=== PATIENT | female | born 1935 | race Caucasian/White ===

== ENCOUNTER 2019-09-12 18:50 | Emergency (ER) | payer OTHER, MEDICARE ==
[2019-09-12 19:05] VITALS: BP 167/64; PULSE 83; TEMP 98; BMI 23.0
--- NOTE | 2019-09-13 01:51 | PDOC ---
Documentation entered by Tara Lawrence SCRIBE, acting as scribe for Magdalena Calix MD. Magdalena Calix MD: This documentation has been prepared by the Howard tucker Xhesika, SCRIBE, under my direction and personally reviewed by me in its entirety. I confirm that the documentation accurately reflects all work, treatment, procedures, and medical decision making performed by me. History of Present Illness - General Chief Complaint: Injury Stated Complaint: R wrist pain Time Seen by Provider: 09/12/19 19:31 History Source: Patient Exam Limitations: No Limitations - History of Present Illness Initial Comments: 09/12/19 21:01 The patient is a 84y/o F female with a PMH of breast ca whio presents to the ED with R wrist swelling s/p fall this morning. Pt states she tripped on a box next to her garbages and fell on her R wrist. Pt states her pain is worse with movements. Pt denies any other injuries. Pt denies hitting her head or LOC. Allergies: Diclofenac sodium PCP: Dr. Souza Past History - Medical History Allergies/Adverse Reactions: Allergies Allergy/AdvReac Type Severity Reaction Status Date / Time diclofenac sodium Allergy Intermediate Rash Verified 11/06/11 13:02 [From Voltaren] Home Medications: Ambulatory Orders Calcium Carbonate [Calcium] BID 11/06/11 Citalopram Hydrobromide [Celexa -] 10 mg PO DAILY 11/06/11 Multivitamin with Minerals [Multiple Vitamin] DAILY 11/06/11 Hydrocodone Bit/Acetaminophen [Vicodin Es 7.5-750mg -] 1 - 2 tab PO QID PRN #0 tablet 11/09/11 Anemia: No Asthma: No Cancer: Yes (BREAST CANCER) Cardiac Disorders: No CVA: No COPD: No CHF: No Dementia: No Diabetes: No GI Disorders: No Disorders: No HTN: No Hypercholesterolemia: No Liver Disease: No Seizures: No Thyroid Disease: No - Surgical History Abdominal Surgery: Yes (1989, EXPLORATORY LAP WITH APPENDECTOMY) Appendectomy: Yes (1989) Cardiac Surgery: No Cholecystectomy: No Lung Surgery: No Neurologic Surgery: No Orthopedic Surgery: No - Psycho-Social/Smoking History Smoking History: Never smoked - Substance Abuse Hx (Audit-C & DAST Scrn) How often the patient has a drink containing alcohol: Never Score: In Men: 4 or > Positive; In Women: 3 or > Positive: 0 Screen Result (Pos requires Nsg. Audit-10AR): Negative Review of Systems - Review of Systems Able to Perform ROS?: Yes Comments:: 09/12/19 21:04 GENERAL/CONSTITUTIONAL: No fever or chills. No weakness. HEAD, EYES, EARS, NOSE AND THROAT: No change in vision. No ear pain or discharge. No sore throat. CARDIOVASCULAR: No chest pain or shortness of breath. RESPIRATORY: No cough, wheezing, or hemoptysis. GASTROINTESTINAL: No nausea, vomiting, diarrhea or constipation. GENITOURINARY: No dysuria, frequency, or change in urination. MUSCULOSKELETAL: + R wrist swelling. No neck or back pain. SKIN: No rash NEUROLOGIC: No headache, vertigo, loss of consciousness, or change in strength/sensation. ENDOCRINE: No increased thirst. No abnormal weight change. HEMATOLOGIC/LYMPHATIC: No anemia, easy bleeding, or history of blood clots. ALLERGIC/IMMUNOLOGIC: No hives or skin allergy. *Physical Exam - Vital Signs Last Vital Signs Temp Pulse Resp BP Pulse Ox 98 F 83 20 167/64 97 09/12/19 18:53 09/12/19 18:53 09/12/19 18:53 09/12/19 18:53 09/12/19 18:53 - Physical Exam 09/12/19 21:05 GENERAL: Awake, alert, and fully oriented, in no acute distress HEAD: No signs of trauma EYES: PERRLA, EOMI, sclera anicteric, conjunctiva clear ENT: Auricles normal inspection, hearing grossly normal, nares patent, orophary nx clear without exudates. Moist mucosa NECK: Normal ROM, supple, no lymphadenopathy, JVD, or masses LUNGS: Breath sounds equal, clear to auscultation bilaterally. No wheezes, and no crackles HEART: Regular rate and rhythm, normal S1 and S2, no murmurs, rubs or gallops ABDOMEN: Soft, nontender, normoactive bowel sounds. No guarding, no rebound. No masses EXTREMITIES: +2 by 3 mildly tenderness, mildly ecchymotic distal ulnar volar aspect of R wrist. +3cm linear abrasion with surrounding ecchymosis of lateral L forearm. No point tenderness. No deformity. No pain on pronation or supination. NEUROLOGICAL: Cranial nerves II through XII grossly intact. Normal speech, normal gait SKIN: Warm, Dry, normal turgor, no rashes lesions noted. Medical Decision Making - Medical Decision Making As noted above, this 84-year-old woman presents with painful, swollen right wrist after she tripped and fell at home earlier today. Patient did not hit her head/neck and denies any other symptoms. No previous history of acute injury in the right wrist (although she has broken her left wrist in the past). Exam as noted above Right wrist x-ray performed: Preliminary interpretationno evidence of fracture or dislocation Results discussed with patient and her daughter; to support the area of acute injury (especially until formal reading of x-rays completed) patient should use a removable wrist splint which was provided for her. She should ice and elevate the area of injury is much as possible over the next few days. She should continue to use acetaminophen as needed for pain. If she has persistent pain/swelling in the area, she should follow-up with an orthopedist (either the orthopedist who took care of her for her left wrist injury or Dr. Thomas/, whose referral info was provided) Discharge - Discharge Information Problems reviewed: Yes Clinical Impression/Diagnosis: Contusion of right wrist Qualifiers: Encounter type: initial encounter Qualified Code(s): S60.211A - Contusion of right wrist, initial encounter Right wrist sprain Qualifiers: Encounter type: initial encounter Qualified Code(s): S63.501A - Unspecified sprain of right wrist, initial encounter Condition: Stable Disposition: HOME - Follow up/Referral Referrals: Chico Thomas DO [Staff Physician] - - Patient Discharge Instructions Patient Printed Discharge Instructions: Wrist Sprain Additional Instructions: Ice/elevation of right wrist area as much as possible over the next day Use wrist splint as needed for the next 2 to 3 days; avoid overuse of your right arm Tylenol as needed for pain Follow-up with orthopedist (Dr. Thomas or Dr. Moreau) if you have persistent pain in right arm Return to ER if you have severe symptoms - Post Discharge Activity
== END 2019-09-12 21:09 | disposition home or self-care (01) ==
LOC: FER 18:50
DX: S63.501A Unspecified sprain of right wrist, initial encounter (principal); W19.XXXA Unspecified fall, initial encounter
CPT/HCPCS: 73110-TC-RT-FY; 99283-25